=== PATIENT | male | born 1985 | race African-American/Black ===

== ENCOUNTER 2023-07-27 11:16 | Inpatient (IN) | payer OTHER ==
[~2023-07-27] VITALS: Ht 180.3 cm; Wt 115.2 kg
[2023-07-27] MEDS ORDERED: GABA-1181 PO (11:35)
[2023-07-27] MEDS ORDERED: CELE200 PO (11:35)
[2023-07-27 12:00] LABS: BASOPHILS % (AUTO) 0.3 % (0.0-2.0); EOSINOPHILS % (AUTO) 0.1 % (1.0-6.0); HEMATOCRIT 39.7 % (41-53); HEMOGLOBIN 12.9 g/dL (13.5-17.5); LYMPHOCYTES # (AUTO) 0.8 K/uL (1.0-4.8); LYMPHOCYTES % (AUTO) 16.3 % (22.0-44.0); MEAN CORPUSCULAR HEMOGLOBIN 29.9 pg (26.0-34.0); MEAN CORPUSCULAR HGB CONC 32.5 G/dL (31.0-37.0); MEAN CORPUSCULAR VOLUME 92 fL (80-100); MONOCYTES # (AUTO) 0.4 K/uL (0.1-1.0); MONOCYTES % (AUTO) 7.2 % (2.0-9.0); NEUTROPHILS # (AUTO) 3.9 K/uL (1.8-7.7); NEUTROPHILS % (AUTO) 76.1 % (40.0-70.0); PLATELET COUNT (AUTO) 240 K/uL (150-450); RED BLOOD CELL COUNT(AUTO) 4.32 MIL/uL (4.50-5.90); RED CELL DISTRIBUTION WIDTH 13.5 % (11.5-14.5); WHITE BLOOD COUNT (AUTO) 5.1 K/uL (4.5-11.0)
[2023-07-27 12:11] LABS: ANION GAP 9 mmol/L (8-16); CALCIUM, TOTAL 8.9 mg/dL (8.8-10.5); CARBON DIOXIDE 27 mmol/L (22-29); CHLORIDE 107 mmol/L (98-107); CREATININE 0.88 mg/dL (0.60-1.30); GLOMERULAR FILTR. RATE CALC > 60 mL/min (>60); GLUCOSE,RANDOM 104 mg/dL (70-110); POTASSIUM 4.7 mmol/L (3.5-5.1); SODIUM SERUM 143 mmol/L (136-145); UREA NITROGEN, BLOOD 10 mg/dL (7-18)
[2023-07-27 12:24] LABS: ALANINE AMINOTRANSFERASE 28 U/L (12-78); ALBUMIN 3.6 g/dL (3.4-5.0); ALKALINE PHOSPHATASE 50 U/L (46-116); ASPARTATE AMINOTRANSFERASE 29 U/L (15-37); BILIRUBIN,TOTAL 0.6 mg/dL (0.1-1.0); TOTAL PROTEIN, SERUM 7.6 g/dL (6.4-8.2)
[2023-07-27 12:35] LABS: ALCOHOL, BLOOD (SERUM) < 3 mg/dL (0-10)
[2023-07-27 12:48] LABS: APPEARANCE,URINE CLEAR (CLEAR); BILIRUBIN,URINE NEGATIVE (NEGATIVE); COLOR,URINE COLORLESS (YELLOW); GLUCOSE, URINE (UA) NEGATIVE (NEGATIVE); KETONES,URINE TRACE mg/dL (NEGATIVE); LEUKOCYTE ESTERASE ,URINE NEGATIVE (NEGATIVE); NITRATE,URINE NEGATIVE (NEGATIVE); OCCULT BLOOD,URINE NEGATIVE (NEGATIVE); PROTEIN,URINE NEGATIVE (NEGATIVE); SPECIFIC GRAVITIY, URINE 1.014 (1.003-1.030); UROBILINOGEN,URINE <=1.0 mg/dL (<=1.0)
[2023-07-27] MEDS ORDERED: DiphenhydrAMINE HCL 50 MG/ML VIAL ONE (12:48)
[2023-07-27] MEDS ORDERED: LORazepam 2 MG/ML VIAL ONE (12:48)
[2023-07-27] MEDS ORDERED: HALOPERIDOL LACTATE 5 MG/ML VIAL ONE (12:48)
[2023-07-27 12:52] LABS: SALICYLATE < 2.8 mg/dL (2.8-20.0)
[2023-07-27 12:54] LABS: ALCOHOL, URINE DRUG SCREEN NEGATIVE (NEGATIVE); AMPHET/METH SCREEN,URINE NEGATIVE (NEGATIVE); BARBITURATE SCREEN, URINE NEGATIVE (NEGATIVE); BENZODIAZEPINES SCREEN,URINE NEGATIVE (NEGATIVE); CANNABINOID SCREEN,URINE POSITIVE (NEGATIVE); COCAINE SCREEN,URINE NEGATIVE (NEGATIVE); METHADONE SCREEN, URINE NEGATIVE (NEGATIVE); OPIATE SCREEN,URINE NEGATIVE (NEGATIVE); PHENCYCLIDINE SCREEN,URINE NEGATIVE (NEGATIVE)
[2023-07-27] MEDS ORDERED: HALOPERIDOL LACTATE 5 MG/ML VIAL IM ONE (13:00)
[2023-07-27] MEDS ORDERED: DiphenhydrAMINE HCL 50 MG/ML VIAL IM ONE (13:00)
[2023-07-27] MEDS ORDERED: LORazepam 2 MG/ML VIAL IM ONE (13:00)
[2023-07-27 13:14] LABS: ACETAMINOPHEN < 2 mcg/mL (10-30)
[2023-07-27 13:49] LABS: BACTERIA,URINE None Seen /HPF (None Seen); RBC,URINE None Seen /HPF (0-2); SQUAMOUS EPITHELIAL CELL,UR None Seen /LPF (None Seen); WBC,URINE None Seen /HPF (0-5)
[2023-07-27 13:53] LABS: COVID AG,FIA SOURCE NASAL SWAB
[2023-07-27 14:23] LABS: SARS-COV2 (COVID) ANTIGEN,FIA Negative (Negative)
[2023-07-27 15:44] VITALS: BP 115/70; PULSE 72; RESP 18; TEMP 97.3; O2SAT 99
[2023-07-27 21:01] VITALS: RESP 18
[2023-07-28 08:00] VITALS: BP 134/74; PULSE 67; RESP 20; TEMP 97.5
[2023-07-28] MEDS ORDERED: CloNIDine HCL 0.1 MG TABLET PO PRN (09:45)
[2023-07-28] MEDS ORDERED: GuaiFENesin/D-METHORPHAN [SUGAR-FREE] 200-20MG/10 ML SYRUP UDCUP PO PRN (09:45)
[2023-07-28] MEDS ORDERED: ONDANSETRON HCL 4 MG TABLET PO PRN (09:45)
[2023-07-28] MEDS ORDERED: LOPERAMIDE HCL 2 MG CAPSULE PO PRN (09:45)
[2023-07-28] MEDS ORDERED: ALBUTEROL SULFATE HFA 90 MCG/PUFF 8 GM INHALER IH PRN (09:45)
[2023-07-28] MEDS ORDERED: DOCUSATE SODIUM 100 MG CAPSULE PO PRN (09:45)
[2023-07-28] MEDS ORDERED: ACETAMINOPHEN 325 MG TABLET PO PRN (09:45)
[2023-07-28] MEDS ORDERED: PETROLATUM,WHITE 28 GM JELLY TP PRN (09:45)
[2023-07-28] MEDS ORDERED: NICOTINE 14 MG/24 HOUR PATCH TD PRN (09:45)
[2023-07-28] MEDS ORDERED: MAGNESIUM HYDROXIDE SUSPENSION 30 ML UDCUP PO PRN (09:45)
[2023-07-28] MEDS ORDERED: MAG HYDROX/ALUMINUM HYD/SIMETH ES 30 ML SUSPENSION UDCUP PO PRN (09:45)
[2023-07-28] MEDS: LORazepam 2 MG TABLET PO PRN (14:27)
[2023-07-28] MEDS: IBUPROFEN 400 MG TABLET PO PRN (14:28)
[2023-07-28 14:29] VITALS: BP 115/70; PULSE 70; RESP 17; TEMP 97.5
[2023-07-28 15:29] VITALS: BP 141/85; PULSE 70; RESP 17; TEMP 97.7; O2SAT 0
[2023-07-28] MEDS: GABAPENTIN 300 MG CAPSULE PO SCH (16:38)
[2023-07-28] MEDS: QUEtiapine FUMARATE 25 MG TABLET PO SCH (20:57)
[2023-07-28 22:41] VITALS: RESP 18
[2023-07-29] MEDS: LORazepam 2 MG TABLET PO PRN (03:49)
[2023-07-29] MEDS: LURASIDONE HCL 40 MG TABLET PO SCH (06:51)
[2023-07-29] MEDS: CELECOXIB 200 MG CAPSULE PO SCH (06:51)
[2023-07-29] MEDS: BENZTROPINE MESYLATE 0.5 MG TABLET PO SCH (08:03)
[2023-07-29] MEDS: GABAPENTIN 300 MG CAPSULE PO SCH ×2 (08:03→17:13)
[2023-07-29 09:27] VITALS: BP 142/77; PULSE 74; RESP 18; TEMP 97.4
[2023-07-29] MEDS ORDERED: HALOPERIDOL LACTATE 5 MG/ML VIAL IM ONE (12:45)
[2023-07-29] MEDS ORDERED: DiphenhydrAMINE HCL 50 MG/ML VIAL IM ONE (12:45)
[2023-07-29] MEDS ORDERED: LORazepam 2 MG/ML VIAL IM ONE (12:45)
[2023-07-29 15:23] LABS: THYROID STIMULATING HORMONE 2.32 uIU/mL (0.36-3.74)
[2023-07-29 16:25] LABS: HEMOGLOBIN A1C 4.8 % (3.8-5.6)
[2023-07-29 20:59] VITALS: BP 139/79; PULSE 78; RESP 18; TEMP 97.7; O2SAT 98
[2023-07-29] MEDS: QUEtiapine FUMARATE 25 MG TABLET PO SCH (21:03)
[2023-07-29] MEDS: ZOLPIDEM TARTRATE 10 MG TABLET PO PRN (21:03)
[2023-07-30] MEDS: LORazepam 2 MG TABLET PO PRN ×4 (03:14→22:49)
[2023-07-30] MEDS: LURASIDONE HCL 40 MG TABLET PO SCH (06:58)
[2023-07-30] MEDS: CELECOXIB 200 MG CAPSULE PO SCH (06:59)
[2023-07-30] MEDS: QUEtiapine FUMARATE 100 MG TABLET PO PRN ×2 (08:24→22:49)
[2023-07-30] MEDS: GABAPENTIN 300 MG CAPSULE PO SCH ×2 (08:24→16:27)
[2023-07-30] MEDS: BENZTROPINE MESYLATE 0.5 MG TABLET PO SCH (08:24)
[2023-07-30 09:11] VITALS: BP 150/74; PULSE 78; RESP 18; TEMP 97.6; O2SAT 98
[2023-07-30] MEDS: IBUPROFEN 400 MG TABLET PO PRN (15:35)
[2023-07-30 20:19] VITALS: BP 152/87; PULSE 104; RESP 18; TEMP 97.7; O2SAT 97
[2023-07-30] MEDS: QUEtiapine FUMARATE 25 MG TABLET PO SCH (20:31)
[2023-07-30] MEDS: ZOLPIDEM TARTRATE 10 MG TABLET PO PRN (21:47)
[2023-07-31] MEDS: LURASIDONE HCL 40 MG TABLET PO SCH (07:02)
[2023-07-31] MEDS: CELECOXIB 200 MG CAPSULE PO SCH (07:02)
[2023-07-31 08:08] VITALS: BP 139/69; PULSE 100; RESP 18; TEMP 97; O2SAT 99
[2023-07-31] MEDS: BENZTROPINE MESYLATE 0.5 MG TABLET PO SCH (08:49)
[2023-07-31] MEDS: GABAPENTIN 300 MG CAPSULE PO SCH ×2 (08:49→16:25)
[2023-07-31] MEDS: LORazepam 2 MG TABLET PO PRN (17:46)
[2023-07-31] MEDS: QUEtiapine FUMARATE 100 MG TABLET PO PRN (19:22)
[2023-07-31 20:35] VITALS: BP 134/81; PULSE 78; RESP 18; TEMP 97.6; O2SAT 98
[2023-07-31] MEDS: ZOLPIDEM TARTRATE 10 MG TABLET PO PRN (21:39)
[2023-08-01] MEDS: LURASIDONE HCL 40 MG TABLET PO SCH (06:50)
[2023-08-01] MEDS: CELECOXIB 200 MG CAPSULE PO SCH (06:50)
[2023-08-01 07:31] LABS: CHOL/HDL RATIO 2.3 (4.2-7.3)
[2023-08-01 08:15] VITALS: BP 139/58; PULSE 97; RESP 18; TEMP 97.3; O2SAT 98
[2023-08-01] MEDS: GABAPENTIN 300 MG CAPSULE PO SCH ×2 (08:27→16:34)
[2023-08-01] MEDS: BENZTROPINE MESYLATE 0.5 MG TABLET PO SCH (08:27)
[2023-08-01] MEDS: LORazepam 2 MG TABLET PO PRN (18:27)
[2023-08-01] MEDS: QUEtiapine FUMARATE 100 MG TABLET PO PRN (20:45)
[2023-08-01 21:24] VITALS: BP 149/76; PULSE 70; RESP 18; TEMP 97.8; O2SAT 100
[2023-08-01] MEDS: ZOLPIDEM TARTRATE 10 MG TABLET PO PRN (21:27)
[2023-08-02] MEDS: CELECOXIB 200 MG CAPSULE PO SCH (06:54)
[2023-08-02] MEDS: LURASIDONE HCL 40 MG TABLET PO SCH (06:54)
[2023-08-02] MEDS: BENZTROPINE MESYLATE 0.5 MG TABLET PO SCH (08:11)
[2023-08-02] MEDS: GABAPENTIN 300 MG CAPSULE PO SCH (08:11)
[2023-08-02 08:15] VITALS: BP 145/88; PULSE 93; RESP 19; TEMP 97.8; O2SAT 99
[2023-08-02] MEDS ORDERED: BENZ0.5T6 PO (11:11)
[2023-08-02] MEDS ORDERED: LURA40TA4 PO (11:11)
[2023-08-02] MEDS ORDERED: GABA-1181 PO (11:11)
[2023-08-02] MEDS ORDERED: CELE200 PO (11:11)
== END 2023-08-02 17:29 | disposition home or self-care (01) | DRG 885 ==
LOC: EDBD 11:18 → EMS 11:18 → 3EC 14:06
PROVIDERS: ADMIT Psychiatry & Neurology Psychiatry; ATTEND Psychiatry & Neurology Psychiatry
PROC: GZHZZZZ Group Psychotherapy (ICD-10-PCS; principal; 2023-07-31)
DX: F33.3 Major depressive disorder, recurrent, severe with psychotic symptoms (principal); R45.851 Suicidal ideations; G47.00 Insomnia, unspecified; F41.9 Anxiety disorder, unspecified; F12.90 Cannabis use, unspecified, uncomplicated; Z20.822 Contact with and (suspected) exposure to COVID-19; D64.9 Anemia, unspecified; F29 Unspecified psychosis not due to a substance or known physiological condition; Z79.899 Other long term (current) drug therapy
CPT/HCPCS: 80053; 80061; 80307; 81001; 83036; 84443; 85025; 99291; G0480; G0481; J1200; J1630; J2060